=== PATIENT | female | born 1970 | race Hispanic/Latino ===

== ENCOUNTER 2019-05-28 12:07 | Outpatient (CLI) | payer OTHER ==
--- NOTE | 2019-05-28 12:55 | ULT ---
EXAM: US Thyroid STANDARD PROVIDED CLINICAL HISTORY: Thyroid nodule. COMPARISON: None FINDINGS: The right lobe of the thyroid gland measures 5.1 cm x 2.2 cm x 1.6 cm with the left lobe measuring 4. 9 cm x 2.6 cm x 2.3 cm. The thyroid isthmus is thickened measuring 0.6 cm in AP dimensions. There are 2 tiny hypoechoic nodules seen within the midportion right lobe of thyroid gland measuring 0.6 cm and 0.4 cm. There is a rounded heterogeneous nodule in the midportion left lobe of the thyroid gland which measur es 1.8 cm in maximal dimensions. IMPRESSION: 1. TI RADS level 4-dominant heterogeneous nodule midportion left lobe thyroid gland. According to cur rent guidelines, fine-needle aspiration of this nodule is recommended. 2. Tiny hypoechoic nodules right lobe of thyroid gland. Based on current guidelines including size cr iteria, fine-needle aspiration or follow-up of these tiny nodules is not warranted.
== END 2019-05-28 12:08 | disposition home or self-care (01) ==
LOC: BICULT 12:07
PROVIDERS: ATTEND Family Medicine
DX: E04.2 Nontoxic multinodular goiter (principal)
CPT/HCPCS: 76536

== ENCOUNTER 2019-06-15 12:14 | Day surgery (SDC) | payer OTHER ==
[2019-06-11 13:00] VITALS: BMI 32.5
[2019-06-15 14:54] VITALS: BP 138/74; TEMP 98.1
--- NOTE | 2019-06-15 16:54 | ULT ---
Ultrasound-guided fine-needle aspiration of left thyroid nodule: 06/15/2019 HISTORY: Left thyroid nodule FINDINGS: Informed consent obtained prior to the procedure. Preprocedural imaging demonstrates a heterogeneously hypoechoic solid nodule within the left lobe of the thyroid gland measuring 1.9 x 1.6 x 1.6 cm. Skin overlying the lesion was prepped and draped in normal sterile fashion and anesthetized with 1% buffered lidocaine. With direct sonographic guidance, 4 25-gauge fine-needle aspirations were obtained. Specimen was give n to the pathologist at the bedside. The patient tolerated the procedure well. No post procedural complications. IMPRESSION: Successful fine-needle aspiration of solid nodule within the left lobe of the thyroid gla nd.
== END 2019-06-15 13:40 | disposition home or self-care (01) ==
LOC: ULT 12:14
PROVIDERS: ATTEND Hospitalist
PROC: 0G9G3ZX Drainage of Left Thyroid Gland Lobe, Percutaneous Approach, Diagnostic (ICD-10-PCS; principal; 2019-06-15)
PROC: BG44ZZZ Ultrasonography of Thyroid Gland (ICD-10-PCS; principal; 2019-06-15)
DX: E04.1 Nontoxic single thyroid nodule (principal); D64.9 Anemia, unspecified; K29.70 Gastritis, unspecified, without bleeding; K52.9 Noninfective gastroenteritis and colitis, unspecified; F41.9 Anxiety disorder, unspecified; F32.9 Major depressive disorder, single episode, unspecified
CPT/HCPCS: 60100; 76942; 88173

== ENCOUNTER 2020-08-17 14:48 | Outpatient (CLI) | payer OTHER ==
--- NOTE | 2020-08-17 15:58 | ULT ---
Thyroid sonogram HISTORY: Thyroid nodule. Follow-up. COMPARISON: 05/28/2019. FINDINGS: On today's exam, the right thyroid lobe measures up to 3.9 cm length. A smoothly marginated oval homogeneous slightly hypoechoic benign-appearing nodule at the anterior margin is 0.6 cm greatest length. Isthmus is 0.7 cm thickness. Left thyroid lobe measures up to 4.3 cm. The heterogeneous mostly solid slightly hypoechoic mass with in the mid to inferior aspect measures 1.9 cm length by 1.5 cm width by 1.7 cm depth. Interval FNA has been performed and showed a benign colloid lesion. No new masses are evident. IMPRESSION : Stable sonographic appearance of the previously sampled left thyroid lobe dominant nodule. No new abn ormalities are demonstrated.
== END 2020-08-17 14:49 | disposition home or self-care (01) ==
LOC: BICULT 14:48
PROVIDERS: ATTEND Hospitalist
DX: E04.1 Nontoxic single thyroid nodule (principal)
CPT/HCPCS: 76536

== ENCOUNTER 2023-01-07 07:46 | Outpatient (CLI) | payer OTHER | END 2023-01-07 07:47 | disposition home or self-care (01) | LOC: ULT 07:46 | PROVIDERS: ATTEND Student in an Organized Health Care Education/Training Program | DX: R10.13 Epigastric pain (principal); K76.0 Fatty (change of) liver, not elsewhere classified | CPT/HCPCS: 76705 ==